=== PATIENT | female | born 1980 | race Hispanic/Latino ===

== ENCOUNTER → 2019-02-07 | Outpatient (CLI) | payer OTHER ==
--- NOTE | 2019-02-07 10:56 | Diagnostic Imaging Report ---
EXAM: US ABDOMEN COMPLETE INDICATION: Epigastric pain. COMPARISON: None TECHNIQUE: Transverse and longitudinal fuentes scale and color doppler sonographic images of the abdomen were obtained. FINDINGS: LIVER Measures 13.3 cm in the right midclavicular line. Increased echogenicity of the liver with normal contour, no masses. SPLEEN Measures 9.1 cm in maximum diameter. Normal echogenicity, no masses. GALLBLADDER No gallbladder wall thickening, distension, stone, or pericholecystic fluid. Negative reported sonographic Cazares's sign. BILE DUCTS No intra nor extra-hepatic biliary dilation. Common bile duct measures 0.3 cm PANCREAS: Visualized portions are normal. RIGHT KIDNEY: 10.1 cm Echogenicity: Normal Collecting System: Mild right calyectasis without veronique hydronephrosis. Stones: None Cyst/Mass: None LEFT KIDNEY: 9.0 cm Echogenicity: Normal Collecting System: No hydronephrosis Stones: None Cyst/Mass: None VESSELS: Aorta: Visualized portions are within normal size limits Inferior Vena Cava: Visualized portions are normal Main Portal Vein: 0.8 cm, normal size with hepatopetal flow. FREE FLUID: None IMPRESSION: Hepatic steatosis. Signed by: Dr. Heri Dorado MD on 02/07/2019 10:53 AM
== END ==
LOC: US 09:12
PROVIDERS: ATTEND Internal Medicine Gastroenterology
DX: R10.13 Epigastric pain (principal); E66.3 Overweight; Z71.3 Dietary counseling and surveillance
CPT/HCPCS: 76700